=== PATIENT | female | born 1970 | race Caucasian/White ===

== ENCOUNTER → 2017-09-24 15:16 | Outpatient (CLI) | payer BC, SELFPAY ==
[2017-09-27 17:06] LABS: Endomysial IgA Antibody Negative (Negative)
[2017-09-27 17:07] LABS: Deamidated Gliadin Abs, IgA 15 units (0-19); Deamidated Gliadin Abs, IgG 3 units (0-19); Tissue Transglutaminase IgA Ab <2 U/mL (0-3); Tissue Transglutaminase IgG Ab 3 U/mL (0-5)
[2017-09-27 17:08] LABS: Reticulin IgA Antibody Negative titer (Neg:<1:2.5)
== END ==
PROVIDERS: PCP Nurse Practitioner Family; Visit Provider Internal Medicine Gastroenterology
DX: K90.0 Celiac disease (principal)
CPT/HCPCS: 36415; 83516; 86255; 86256

== ENCOUNTER 2023-09-01 08:09 | Emergency (ER) | payer BC, SELFPAY ==
[2023-09-01 08:10] VITALS: BP 111/81; PULSE 73; RESP 18; TEMP 36.6; O2SAT 99; BMI 27.9
--- NOTE | 2023-09-01 08:27 | XR_ITS ---
PROCEDURE INFORMATION: Exam: XR Left Hand Exam date and time: 09/01/2023 8:41 AM Age: 52 years old Clinical indication: Pain; Swelling; Hand; Left; Additional info: 2nd mcp injury and sweling TECHNIQUE: Imaging protocol: Radiologic exam of the left hand. Views: 3 or more views. COMPARISON: No relevant prior studies available. FINDINGS: Bones/joints: Normal. Soft tissues: Normal. IMPRESSION: No acute findings.
--- NOTE | 2023-09-01 08:27 | HMH.EDGENADL ---
Discharge Plan Disposition Patient Disposition: Home, Self-Care Prescriptions Prescriptions: No Action triamcinolone acetonide 0.5 % cream 1 applic TOPICAL TID 7 Days Qty: 15 0RF methylprednisolone [Medrol (Germ[place])] 4 mg tablets,dose pack See Rx Instructions PO PER PKG DIR Qty: 21 0RF Rx Instructions: PO PER PKG DIR Referrals Follow up/Referrals: Debora Breaux [Primary Care Provider] - See instructions Clinical Impressions Clinical Impression: Contusion of hand, Hematoma of left hand Discharge ED Provider: Caden Maria General Adult HPI General Chief complaint: Extremity Problem,Nontraumatic Stated complaint: AO left hand swelling pain Time Seen by Provider: 09/01/23 08:18 Mode of Arrival: Ambulatory Source of Information: Patient Limitations: No Limitations Description of Symptoms (Recalled from ER Triage Doc. by RN): Patient reports injury to left hand. Patient states she thinks she bumped it while packing boxes last night. Patient reports pain 3/10 able to move all fingers. History of Present Illness HPI narrative: Patient is a 52-year-old female presenting today with swelling on the dorsal aspect of the metacarpal phalangeal joints on the second digit of her left hand. States she was working yesterday and felt that she hit it pretty hard on something while she was moving [place] around. She has since had significant swelling and ecchymosis in the area and was concerned about a venous injury. Denies any abnormalities with sensation or movement. Related Data Previous Rx's Medication Instructions Recorded methylprednisolone 4 mg tablets in See Rx Instructions PO PER PKG DIR 03/14/21 a dose pack (Medrol (Germ[place])) #21 tabs triamcinolone acetonide 0.5 % 1 applic topical TID dermatitis 7 03/14/21 topical cream days #15 grams Allergies Allergy/AdvReac Type Severity Reaction Status Date / Time No Known Allergies Allergy Verified 03/14/21 15:50 [facility] Disclaimer: The information contained in this section may have been updated after the patient was seen, as this information can be updated by other users. Social History Smoking Status: Current every day smoker alcohol intake: current substance use type: denies use current occupational status: employed Travel in the last 8 weeks: Inside the [place] household members: family housing: house ROS Obtained: Yes All systems reviewed & no additional complaints except as documented Physical Exam General General appearance: alert Respiratory Respiratory exam: Present normal lung sounds bilaterally Cardiovascular Cardiovascular exam: Present regular rate Neurological Exam Neurological exam: Present alert Medical Decision Making [place] Inquiry Pt receiving controlled substance: No Vital Signs: 09/01/23 08:10 Temperature 97.9 F Temperature Source Oral Pulse Rate [Right] 73 Respiratory Rate 18 Blood Pressure [Right Arm] 111/81 Blood Pressure Mean [Right Arm] 91 Blood Pressure Source [Right Arm] Automatic Cuff 02 Sat by Pulse Oximetry 99 Oxygen Delivery Method Room Air Orders (Tests/Meds): ORDERS Category Date Time Status Hand XR left minimum 3 views [XR hand LT min 3V] Stat Exams 09/01/23 08:27 Completed Medical Decision Narrative: Patient is a 52-year-old female with a left hand injury. She has a small hematoma over the injury site which is at the distal metacarpal phalangeal joint on the left hand on the second digit. I suspect this is just a small superficial capillary rupture and hematoma given the fact that she is on NSAIDs could have predisposed her to having some mild bleeding abnormality. Will get an x-ray to rule out underlying fracture or dislocation. Assessment 9:23 AM x-rays performed which I personally interpreted which shows no acute fracture dislocation patient was discharged in a stable condition with supportive care discussed. Critical Care Critical Care Time Critical Care Time: No
--- NOTE | 2023-09-01 08:45 | PC.NURSE ---
PT to XRAY
--- NOTE | 2023-09-01 08:50 | PC.NURSE ---
PT returned from XRAY
--- NOTE | 2023-09-01 09:24 | PC.NURSE ---
DR COLÓN AT BEDSIDE TO UPDATE PT
[2023-09-01 09:28] VITALS: BP 110/78; PULSE 76; RESP 18; TEMP 36.6; O2SAT 99
== END 2023-09-01 09:29 | disposition home or self-care (01) ==
PROVIDERS: Emergency Provider Student in an Organized Health Care Education/Training Program; PCP Nurse Practitioner Family
DX: S60.222A Contusion of left hand, initial encounter; M79.642 Pain in left hand; F17.210 Nicotine dependence, cigarettes, uncomplicated; W22.8XXA Striking against or struck by other objects, initial encounter
CPT/HCPCS: 73130; 99283